=== PATIENT | female | born 1980 | race American Indian/Alaskan Native ===

== ENCOUNTER 2020-04-20 21:08 | Emergency (ER) | payer OTHER ==
[2020-04-20] MEDS ORDERED: CYCLOBENZAPRINE 10 MG TAB PO ONE (21:39)
[2020-04-20] MEDS ORDERED: IBUPROFEN 800 MG TAB PO ONE (21:39)
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
[2020-04-20 22:49] VITALS: BP 151/88
== END 2020-04-20 22:52 | disposition home or self-care (01) ==
LOC: ED 21:08
DX: S29.011A Strain of muscle and tendon of front wall of thorax, initial encounter (principal); I10 Essential (primary) hypertension; Z79.1 Long term (current) use of non-steroidal anti-inflammatories (NSAID); Z79.899 Other long term (current) drug therapy; V49.49XA Driver injured in collision with other motor vehicles in traffic accident, initial encounter; W22.10XA Striking against or struck by unspecified automobile airbag, initial encounter; Y93.89 Activity, other specified; Y92.410 Unspecified street and highway as the place of occurrence of the external cause; Y99.8 Other external cause status
CPT/HCPCS: 71046